=== PATIENT | male | born 1970 | race Caucasian/White ===

== ENCOUNTER 2025-03-12 19:58 | Emergency (ER) | payer OTHER ==
[~2025-03-12] VITALS: Ht 172.7 cm; Wt 103.0 kg
[2025-03-12] MEDS ORDERED: ZESTRIL5 MG PO (20:13)
[2025-03-12] MEDS ORDERED: PHENOBARBITAL15 MG PO (20:13)
[2025-03-12] MEDS ORDERED: DILANTIN100 MG PO ×2 (20:13→20:14)
[2025-03-12] MEDS ORDERED: LIPITOR40 MG PO (20:14)
[2025-03-12 20:49] LABS: BASO # 0.1 10*3/uL (0.0-0.1); BASO % 0.6 % (0.0-1.0); EOS # 0.2 10*3/uL (0.0-0.4); EOS % 1.8 % (1.0-4.0); MEAN CELL VOLUME 88.0 fl (80.0-94.0); MEAN CORPUSCULAR HGB 29.1 pg (27.0-31.0); MEAN PLATELET VOLUME 8.1 fl (9.6-12.3); MONO # 0.8 10*3/uL (0.1-1.0); MONO % 7.4 % (3.0-9.0); NEUT # 7.2 10*3/uL (2.3-7.9); NEUT % 62.6 % (47.0-73.0); NUCLEATED RED BLOOD CELL 0.0 % (0.0-0.0); NUCLEATED RED BLOOD CELL 0.0 10*3/uL (0.0-0.0); PLATELET COUNT AUTOMATED 261 10*3/uL (130-400); RED CELL DISTRI WIDTH 14.1 % (0-14.5)
[2025-03-12 21:10] LABS: BUN 9 mg/dl (9-23)
== END 2025-03-12 22:30 | disposition home or self-care (01) ==
LOC: ED 19:58 → EDSEX 20:02 → ED 20:02
PROVIDERS: Emergency Medicine
DX: F41.9 Anxiety disorder, unspecified (principal); I10 Essential (primary) hypertension; Z88.0 Allergy status to penicillin